=== PATIENT | female | born 1960 | race Caucasian/White ===

== ENCOUNTER 2017-01-05 09:52 | Emergency (ER) | payer BC ==
--- NOTE | 2017-01-05 10:23 | UC ---
Laceration HPI - HPI Summary HPI Summary: nearly full skin avulsion of tip of the left pinky finger-cut yesterday evening on a mushroom knife-- - History Of Current Complaint Chief Complaint: UCLaceration Stated Complaint: LEFT PINKY LACERATION Time Seen by Provider: 01/05/17 10:15 Hx Obtained From: Patient Laceration Location: Finger - left fifth finger tip Mechanism Of Injury: Sharp Trauma Onset/Duration: Sudden Onset, Other - happened yesterday at 5pm Severity: Moderate Pain Intensity: 5 - Allergies/Home Medications Allergies/Adverse Reactions: Allergies Allergy/AdvReac Type Severity Reaction Status Date / Time No Known Allergies Allergy Verified 01/05/17 10:02 Home Medications: Home Medications Acetaminophen [Eq Acetaminophen] 650 mg PO ONCE PRN 01/05/17 [History Confirmed 01/05/17] PMH/Surg Hx/FS Hx/Imm Hx Previously Healthy: Yes - Surgical History Surgical History: Yes Surgery Procedure, Year, and Place: hysterectomy and benign tumor removed 2015 - Family History Known Family History: Positive: None - Social History Occupation: Employed Full-time Lives: With Family Alcohol Use: Occasionally Substance Use Type: None Smoking Status (MU): Heavy Every Day Tobacco Smoker Type: Cigarettes Amount Used/How Often: 1 pack daily Have You Smoked in the Last Year: Yes Household Exposure Type: Cigarettes Cessation Counseling: Counseled 3+Min - 10 Min - Immunization History Hx Tetanus, Diphtheria Vaccination: Yes Vaccination Up to Date: Yes Review of Systems Constitutional: Negative Skin: Negative, Other - nearly ful avulsion of the tip of her left pinky on a mushroom knife yesterday Eyes: Negative ENT: Negative Respiratory: Negative Cardiovascular: Negative Gastrointestinal: Negative Genitourinary: Negative Motor: Negative Neurovascular: Negative Musculoskeletal: Negative Neurological: Negative Psychological: Negative Is Patient Immunocompromised?: No All Other Systems Reviewed And Are Negative: Yes Physical Exam Triage Information Reviewed: Yes Appearance: Well-Appearing, No Pain Distress, Well-Nourished Vital Signs: Initial Vital Signs Temp 99.2 F 01/05/17 10:03 Pulse 90 01/05/17 10:03 Resp 16 01/05/17 10:03 BP 142/96 01/05/17 10:03 Pulse Ox 100 01/05/17 10:03 Vital Signs Reviewed: Yes Eye Exam: Normal Eyes: Positive: Conjunctiva Clear ENT Exam: Normal ENT: Positive: Normal ENT inspection, Hearing grossly normal. Negative: Nasal congestion, Nasal drainage, Trismus, Muffled/hoarse voice Dental Exam: Normal Neck exam: Normal Neck: Positive: Supple, Nontender, No Lymphadenopathy Respiratory Exam: Normal Respiratory: Positive: Chest non-tender, No respiratory distress, No accessory muscle use Cardiovascular Exam: Normal Cardiovascular: Positive: Pulses Normal, Brisk Capillary Refill Musculoskeletal Exam: Normal Musculoskeletal: Positive: Strength Intact, ROM Intact, No Edema Neurological Exam: Normal Neurological: Positive: Alert, Muscle Tone Normal Skin: Positive: Other - nearly complete skin avulsion of tip of left fifth finger-flap pink, small amount of oozing blood Laceration Repair - Laceration Repair 1 Description: Irregular Laceration Size After Repair: Length (cm) - 1, Depth (mm) - 4 Modified For Repair: No Cleansing Completed Via Routine Prep: Yes Closure Material: SteriStrips Diagnostics - Radiology No standard instances Radiology Interpretation Completed By: ED Physician, Radiologist - soft tissue injury no evidence of jah injury Re-Evaluation - Re-Evaluation First Eval Change: Improved - excellent wound approximation with steri strips, bulk dressing, splint applied Laceration Course/Dx - Course/Dx Course Of Treatment: steristrip, bulky dressing splint, keflex, pain med follow with hand surgeon this week - Differential Dx - Laceration/Wound Differental Diagnoses: Avulsion, Fracture, Hematoma, Joint Space Violation, Laceration Provider Diagnoses: Partial skin avulsion with steri repair, nicotine dependent Discharge - Discharge Plan Condition: Stable Disposition: HOME Prescriptions: Cephalexin CAP* [Keflex CAP*] 500 mg PO QID #28 cap Hydrocodone-Acetaminophen [Hydrocodone/Acetaminophen 5-325 mg] 1 tab PO Q6H PRN #20 tab MDD 4 PRN Reason: pain Patient Education Materials: Skin Avulsion (ED), Cephalexin (By mouth) Forms: *Work Release Referrals: Abrahan Prince MD [Medical Doctor] - 4 Days Additional Instructions: May change or take off dressing daily use splint to protect finger, do not get wet or apply ointments--check daily for infection, increase painm, reddness swelling streaking or warmth
--- NOTE | 2017-01-05 11:31 | RAD ---
Indication: Avulsion injury tip of LEFT fifth finger. Pain. Comparison: No relevant prior exams available on the [facility] [place] PACS for comparison. Technique: 3 views LEFT fifth finger. REPORT AND IMPRESSION: Soft tissue swelling and contour irregularity at the tip consistent with history of laceration. No conspicuous foreign body, fracture, or malalignment.
[2017-01-05 11:54] VITALS: BP 131/93
== END 2017-01-05 12:15 | disposition home or self-care (01) ==
LOC: UCCORT 09:52
DX: S61.217A Laceration without foreign body of left little finger without damage to nail, initial encounter (principal); X99.1XXA Assault by knife, initial encounter
CPT/HCPCS: 73140; 99202; G0463

== ENCOUNTER 2018-08-02 09:47 | Emergency (ER) | payer SELFPAY ==
[2018-08-02 10:02] VITALS: BP 144/93
--- NOTE | 2018-08-02 10:14 | UC ---
Skin Complaint HPI - HPI Summary HPI Summary: 57 yo female with a left eyebrow lac that occurred yesterday evening about 8:30 PM Td up to dater no LOC mild HERNANDEZ was at [facility] and had a CT Left prior to having wound repaired - History of Current Complaint Chief Complaint: UCLaceration Time Seen by Provider: 08/02/18 10:03 Stated Complaint: HEAD LAC Hx Obtained From: Patient Onset/Duration: Sudden Onset, Lasting Hours Timing: Constant Onset Severity: Moderate Current Severity: Moderate Pain Intensity: 5 Pain Scale Used: 0-10 Numeric Location: Discrete Character: Painful Aggravating Factor(s): Touch Alleviating Factor(s): Nothing Associated Signs & Symptoms: Positive: Negative Related History: Trauma - Allergy/Home Medications Allergies/Adverse Reactions: Allergies Allergy/AdvReac Type Severity Reaction Status Date / Time No Known Allergies Allergy Verified 08/02/18 09:57 Home Medications: Home Medications Aspirin TAB* [Aspirin 325 MG TAB*] 325 mg PO DAILY PRN 08/02/18 [History Confirmed 08/02/18] PMH/Surg Hx/FS Hx/Imm Hx Previously Healthy: Yes Endocrine History: Thyroid Disease Other Endocrine History: hx thyroid mass since a teen Cardiovascular History: Hypertension - white coat - Surgical History Surgical History: Yes Surgery Procedure, Year, and Place: hysterectomy and benign tumor removed 2016 - Family History Known Family History: Positive: Hypertension, Non-Contributory - Social History Alcohol Use: Occasionally Substance Use Type: None Smoking Status (MU): Heavy Every Day Tobacco Smoker Type: Cigarettes Amount Used/How Often: 1 pack daily Have You Smoked in the Last Year: Yes Household Exposure Type: Cigarettes Cessation Counseling: Patient Advised to Stop - Immunization History Most Recent Tetanus Shot: 2 years ago Hx Tetanus, Diphtheria Vaccination: Yes Vaccination Up to Date: Yes Review of Systems All Other Systems Reviewed And Are Negative: Yes Constitutional: Positive: Negative Skin: Positive: Negative Eyes: Positive: Negative ENT: Positive: Negative Respiratory: Positive: Negative Cardiovascular: Positive: Negative Gastrointestinal: Positive: Negative Genitourinary: Positive: Negative Motor: Positive: Negative Neurovascular: Positive: Negative Musculoskeletal: Positive: Negative Neurological: Positive: Negative Psychological: Positive: Negative Physical Exam Triage Information Reviewed: Yes Appearance: Well-Appearing, No Pain Distress, Well-Nourished Vital Signs: Initial Vital Signs Temp 97.6 F 08/02/18 09:58 Pulse 116 08/02/18 09:58 Resp 16 08/02/18 09:58 BP 144/93 08/02/18 09:58 Pulse Ox 99 08/02/18 09:58 Vital Signs Reviewed: Yes Eyes: Positive: Conjunctiva Clear ENT: Positive: Hearing grossly normal. Negative: Nasal congestion, Nasal drainage, Trismus, Muffled voice, Hoarse voice, Uvula midline Neck: Positive: Supple Respiratory: Positive: Lungs clear, Normal breath sounds, No respiratory distress, No accessory muscle use Cardiovascular: Positive: RRR Musculoskeletal: Positive: ROM Intact, No Edema Neurological: Positive: Alert Psychological Exam: Normal Skin Exam: Other - see image Procedures - Laceration/Wound Repair 1 Location: face - left eye brow Description: Linear Length, Depth and Shape: 3.5 cm L, 3 mm deep, linear Irrigated w/ Saline (ccs): 250 Closure: SteriStrips - not sutured since >12 hours since injury Course/Dx - Course Course Of Treatment: CT results from Mike obtained Brain- no fx or brain injury neck- no fx, large calcified left thryoid mass - Diagnoses Provider Diagnosis: Laceration of brow without complication, Elevated BP without diagnosis of hypertension, Smoker Discharge - Sign-Out/Discharge Documenting (check all that apply): Patient Departure All imaging exams completed and their final reports reviewed: No Studies - Discharge Plan Condition: Stable Disposition: HOME Patient Education Materials: Samir (ED) Referrals: [facility] [place] [facility]ERR[facility] [Outside] (you need to find a primary care provider) Hardeep Thorpe MD [Medical Doctor] - (for evaluation of thyroid mass) Additional Instructions: I suggest you see a specialist about the thyroid mass noted on CT - Billing Disposition and Condition Condition: STABLE Disposition: Home
== END 2018-08-02 11:01 | disposition home or self-care (01) ==
LOC: UCCORT 09:47
DX: S01.112A Laceration without foreign body of left eyelid and periocular area, initial encounter (principal); X58.XXXA Exposure to other specified factors, initial encounter; Y92.9 Unspecified place or not applicable; R03.0 Elevated blood-pressure reading, without diagnosis of hypertension; E07.9 Disorder of thyroid, unspecified; F17.210 Nicotine dependence, cigarettes, uncomplicated
CPT/HCPCS: 99212; G0463